=== PATIENT | male | born 1970 | race Caucasian/White ===

== ENCOUNTER 2019-01-30 07:20 | Day surgery (SDC) | payer OTHER ==
--- NOTE | 2019-01-26 15:11 | RAD REPORT ---
EXAM DESCRIPTION: RAD - Chest Pa And Lat (2 Views) - 01/26/2019 2:51 pm CLINICAL HISTORY: preop Chest pain. COMPARISON: <Comparisons> FINDINGS: The lungs are clear. The heart is normal in size. No displaced fractures. IMPRESSION: No acute or concerning finding suspected.
[2019-01-26 15:14] LABS: Absolute Lymphocytes (CBC) 1.4 K/uL (0.7-4.9); Basophils % 0.6 % (0-1.3); Hematocrit 45.3 % (39.6-49.0); Lymphocytes % 29.2 % (15.3-44.8); MPV 8.7 fL (7.6-11.3); RBC Red Blood Cell Count 4.83 M/uL (4.33-5.43)
[2019-01-26 15:19] LABS: Potassium 4.2 mmol/L (3.5-5.1)
[2019-01-26 16:04] LABS: Albumin 3.9 g/dL (3.4-5.0); Bilirubin Direct 0.3 mg/dL (0-0.2); Bilirubin Total 1.5 mg/dL (0.2-1.0); Protein, Total 7.4 g/dL (6.4-8.2)
--- OUTSIDE RECORDS SUMMARY | 2019-01-30 07:22 | XMS REPORT ---
:1970 [facility] Address [address] [place] [address] Dr. Osman. [address] [place] [id number] Care Team Providers Name Role Phone Unavailable Unavailable Unavailable Payers Payer Name Policy Type Policy Number Effective Date Expiration Date Problems This patient has no known problems. Allergies, Adverse Reactions, Alerts This patient has no known allergies or adverse reactions. Medications This patient has no known medications. Results Test Description Test Time Test Comments Text Results Atomic Results Result Comments - [facility] 2018-12-02 FAX: Eduardo Ambriz MD [phone] [place] : St: REG FAX: Y ABDOMEN 12:42:00 Ronnie Juarez MD [phone] W/O CONT Name: JUANY GOLDEN [facility] : 1970 Age/S: 48/M [address] [facility] Unit # : [id number] Loc: E.[place], [place] Phys : [place] [address] Acct : [id number] Dis Date: Status: REG CLI PHONE #: [phone] Exam Date: 12/02/2018 1218 FAX #: [phone] Reason: ABNORMAL RESULTS OF LIVER FUNCTION TEST EXAMS: CPT CODE: [id number] MRI ABDOMEN W/O CONT 82496 REASON FOR EXAM: Gallbladder disease, gallstones. Epigastric pain. MRI the abdomen, MRCP. MIP images. MRCP. Three-dimensional zubb-[id number]-[id number] images are used to assess the common bile duct. The common bile duct diameter appears to be preserved. Maximum diameter proximally 3.5 mm, possibly 3 mm in the pancreas itself. No stones or strictures evident. The gallbladder is at least one dominant gallstone. No obvious wall thickening. No intrahepatic biliary tree dilatation. Main pancreatic duct intact. IMPRESSION: No evidence of common bile duct dilatation, stones or obvious strictures. Single gallstone suggested Main pancreatic duct intact. MRI the abdomen, unenhanced. Axial and coronal sequences are obtained showing uniform appearance to the liver. No focal mass lesions or cystic areas are appreciated. No findings of biliary tree dilatation. Gallbladder in normal position with single gallstone. Wall thickness appears to be intact. No adjacent fluid. Kidneys intact. Normal pancreas configuration spleen normal. Kidneys free of obstruction, grossly normal. IMPRESSION: No abnormality seen within the liver. No findings of ascites. Single gallstone with normal appearance to the gallbladder overall. Location: U19 PAGE 1 Signed Report ( CONTINUED) FAX: Eduardo Ambriz MD [phone] [place]: St: REG FAX: Ronnie Yanez MD [phone] ------ Name: JUANY GOLDEN [facility] : 1970 Age/S: 48/M [address] [facility] Unit # : [id number] Loc: E.[place], [place] Phys : [place] [address] Acct : [id number] Dis Date: Status: REG CLI PHONE #: [phone] Exam Date: 12/02/2018 1218 FAX #: [phone] Reason: ABNORMAL RESULTS OF LIVER FUNCTION TEST EXAMS: CPT CODE: [id number] MRI ABDOMEN W/O CONT 35526 <Continued > at 1242 Reported and signed by: Heriberto Spencer M.D. CC: Eduardo Singh MD; Ronnie Juarez MD Technologist: JAMAAL LOWRY Trnpard Date/Time/By: 12/02 (0265) : By: [facility] PAGE 2 Signed Report FAX: Eduardo Ambriz MD [place]: St: REG FAX: Ronnie Yanez MD [phone] ------ Name: JUANY GOLDEN [facility] : 1970 Age/S: 48/M [address] [facility] Unit # : [id number] Loc: E.[place], [place] Phys : [place] [address] Acct : [id number] Dis Date: Status: REG CLI PHONE #: [phone] Exam Date: 12/02/2018 1218 FAX #: [phone] Reason: ABNORMAL RESULTS OF LIVER FUNCTION TEST EXAMS: CPT CODE: [id number] MRI ABDOMEN W/O CONT 47695 <Continued > Orig Print D/T: S: 12/02/2018 (5220) PAGE 3 Signed Report - 2018-10-26 FAX: Katherine Borjas MD [phone] [place]: St: REG FAX: Y ABDOMEN 14:53:00 Ronnie Juarez MD [phone] COMPLETE Name: JUANY GOLDEN [facility] : 1970 Age/S: 48/M [address] [facility] [employer] Unit # : [id number] Loc: ALINA [place], [place] Phys : [place] [address] Acct : [id number] Dis Date: Status: REG CLI PHONE #: [phone] Exam Date: 10/26/2018 1245 FAX #: [phone] Reason: ABNORMAL RESULTS OF LIVER,EPIGASTRIC PAIN...... EXAMS: CPT CODE: [id number] US ABDOMEN COMPLETE 28454 EXAM: Abdominal ultrasound Location: T18 INDICATION: Epigastric pain, abnormal results of liver function study COMPARISON: None DISCUSSION: Grayscale and selected color ultrasound of the abdomen was performed. LIVER: The liver is normal in echogenicity. There is no mass or intrahepatic biliary ductal dilatation. Right liver span is 12cm. GALLBLADDER/COMMON BILE DUCT: A 1.6 cm shadowing bladder fundal stone is identified. Gallbladder adenomyomatosis is seen. The gallbladder wall measures 1.3 mm. The common bile duct measures 3.9 mm. There is no pericholecystic fluid. Sonographic Sheffield sign is negative. KIDNEYS: The kidneys are normal in echogenicity with no focal mass, cyst, calcification, or hydronephrosis. The right kidney measures 9.9 x 4 x 4.9 cm and the left measures 9.4 x 5.2 x 4.5 cm. SPLEEN: The spleen is unremarkable and measures 9.6 cm in span. PANCREAS: The pancreatic head, neck, and a portion of the body are visualized and are unremarkable. VESSELS: Included portions of the abdominal aorta and IVC are unremarkable. There is hepatopetal flow in the main portal vein. IMPRESSION: 1. Cholelithiasis and gallbladder adenomyomatosis. No evidence of cholecystitis or biliary ductal dilatation. 2. Otherwise, unremarkable abdominal ultrasound. at 1453 Reported and signed by: Maico Mir M.D. PAGE 1 Signed Report (CONTINUED) FAX: Katherine Borjas MD [phone] [place]: St: REG FAX: Ronnie Yanez MD [phone] ------ [facility] 1970 Age[facility]S: 48[facility]M [address] [facility] Unit # : [id number] Loc: [place], [place] Phys : [place] [address] Acct : [id number] Dis Date: Status: REG CLI PHONE #: [phone] Exam Date: 10/26/2018 1245 FAX #: [phone] Reason: ABNORMAL RESULTS OF LIVER,EPIGASTRIC PAIN...... EXAMS: CPT CODE: [id number] US ABDOMEN COMPLETE 76326 <Continued > CC: Katherine Baxter MD; Ronnie Juarez MD Technologist: FER GARVIN Trnscrd Date/Time/By: 10/26/2018 (6242) : By: [email or web address] PAGE 2 Signed Report FAX: Katherine Borjas MD [phone] [place]: St: REG FAX: Ronnie Yanez MD [phone] ------ [facility] 1970 Age/S: 48/M [address] [facility] Unit # : [id number] Loc: ALINA [place], [place] Phys : [place] [address] Acct : [id number] Dis Date: Status: REG CLI PHONE #: [phone] Exam Date: 10/26/2018 1245 FAX #: [phone] Reason: ABNORMAL RESULTS OF LIVER,EPIGASTRIC PAIN...... EXAMS: CPT CODE: [id number] US ABDOMEN COMPLETE 43846 <Continued > Orig Print D/T: S: 10/26/2018 (2973) PAGE 3 Signed Report
[2019-01-30] MEDS ORDERED: Ringers Lactate 1,000 ML IV ONE (07:34)
[2019-01-30] MEDS ORDERED: PROPOFOL 200 MG/20 ML VIAL IV ONE (08:00)
[2019-01-30] MEDS ORDERED: ROCURONIUM 50 MG/5 ML VIAL IV ONE (08:00)
[2019-01-30] MEDS ORDERED: GLYCOPYRROLATE 0.2 MG/ML SYR ONE ×2 (08:01→09:04)
[2019-01-30] MEDS ORDERED: FENTANYL CITR 250 MCG/5 ML ONE (08:02)
[2019-01-30] MEDS ORDERED: LIDOCAINE 2% MPF 5 ML VIAL ONE (08:02)
[2019-01-30] MEDS ORDERED: ONDANSETRON 4 MG/2 ML VIAL ONE (08:05)
[2019-01-30] MEDS ORDERED: NEOSTIGMINE 1 MG/ML -10 ML VIAL ONE (08:05)
[2019-01-30] MEDS ORDERED: MIDAZOLAM HCL 2 MG/2 ML INJ ONE (08:06)
[2019-01-30] MEDS: CEFOXITIN/SWI 1gm 1 GM/10 ML SYR ONE ×3 (08:18→08:45)
[2019-01-30] MEDS ORDERED: EPHEDRINE SULF 50 MG/ML VIAL ONE (09:06)
--- NOTE | 2019-01-30 09:17 | P.BOP ---
Preoperative diagnosis: symptomatic cholelithiasis, gallbladder wall abnormality Postoperative diagnosis: same Primary procedure: Laparoscopic cholecystectomy Neurology Technician: DA CHEATHAM (CASHIER SUPERVISOR) Estimated blood loss: <10cc Specimen: gb Findings: as above Anesthesia: General Complications: None Transferred to: Recovery Room Condition: Good
[2019-01-30] MEDS ORDERED: CODEINE 30MG/APAP 300MG TAB ONE (10:15)
--- NOTE | 2019-01-30 20:56 | OP ---
Date of Procedure: 01/30/2019 Surgeon: Gonzalo Kerns MD Gas Engine Operator Generators: AMY Krueger. Diagnoses: Symptomatic cholelithiasis, gallbladder wall abnormalities and thickening, probably a seamus or. Procedure: Laparoscopic cholecystectomy. Anesthesia: General plus local. Estimated Blood Loss: Less than 10 mL. Finding: As above. Indications: This is a case of a male, who comes to us with above diagnosis. The diagnosis of gallb ladder stones and also gallbladder wall thickening that cannot rule out adenomyosis. Fully explained to the patient and patient after discussing back and forth, decided for laparoscopic cholecystectomy with benefits, alternatives, and risks fully explained include but not limited to infection, bleedin g, damage to adjacent structures, anesthetic complication, choledocholithiasis, bile leak, pancreatit is, VA, and even . He also understands this may not relieve any symptoms. He might need more t groves one surgical intervention. He understood, signed a consent. Description Of Procedure: Patient was brought to the operating room, placed in supine position. Ane sthesia was done without complication. Abdominal area was prepped and draped in a sterile fashion. Marcaine 0.5% was injected for local anesthetic, followed by sharp incision of the skin in the perium bilical region. Incision was carried down to fascia, which was opened under direct vision. Peritone um was encountered, opened under direct vision. Vicryl #1 placed inside the fascia. Amirah trocar w as carefully introduced. No bleeding was obtained. I placed 3 more trocars, 5 mm each one of them, in the right upper quadrant under direct visualization. This allowed to put a grasper in the fundus of the gallbladder, another grasper in the infundibulum, retracted the gallbladder in the inferolater al fashion, exposing the triangle of Calot. I do not see in the outside of the gallbladder wall any tumor. We proceeded to hold the gallbladder in the inferolateral fashion, exposing the triangle of C alot, identified the cystic duct and cystic artery, dissected circumferentially, and we identified a connection between the cystic duct and the gallbladder. An incision was done over the cystic artery. The area was clipped with 3 clips proximal, 1 clip distal in the cystic duct and 2 clips proximal, 1 clip distal in the cystic artery. The area was ligated. The gallbladder was removed from the live r using Bovie cauterizer and removed from abdominal cavity using an EndoCatch through the umbilical i ncision. The area was inspected once again. No bile leak. No bleeding. I proceeded to remove pneu moperitoneum and close the fascia with #1 Vicryl. Irrigated subcu tissue, closed that with 3-0 chrom ic and skin in a subcuticular fashion with 3-0 chromic and Steri-Strips on top. Sponge count and ins trument counts were correct. The patient tolerated the procedure well. The patient was sent to [facility] in stable condition. Diagnosis: Symptomatic cholelithiasis, gallbladder wall abnormalities and thickening, probably a seamus or. Procedure: Laparoscopic cholecystectomy. Disposition: Home. Activity: As tolerated. No heavy lifting. Followup: Follow up in my office in 1 week. Call for appointment [phone]. Keep area dry for 48 ho urs, then may shower. Keep Steri-Strips intact. Medications: Tylenol No. 3 q.4 hours p.r.n. pain, Bactrim DS p.o. b.i.d., and Zofran 4 p.r.n. nausea . KEYONNA/TIFFANY Voice ID: [id number] Report ID: [id number]
== END 2019-01-30 10:57 | disposition home or self-care (01) ==
LOC: OR 07:20
PROVIDERS: ATTEND Surgery
PROC: 0FT44ZZ Resection of Gallbladder, Percutaneous Endoscopic Approach (ICD-10-PCS; principal; 2019-01-30 08:30)
DX: K80.10 Calculus of gallbladder with chronic cholecystitis without obstruction (principal); D13.5 Benign neoplasm of extrahepatic bile ducts; Z80.0 Family history of malignant neoplasm of digestive organs; Z82.49 Family history of ischemic heart disease and other diseases of the circulatory system
CPT/HCPCS: 85025; 80048; 36415; 82150; 80076; 88304; 83690; 71046; 47562; J2704; J2710; J2250; J3010; J2405